=== PATIENT | male | born 1970 | race African-American/Black ===

== ENCOUNTER 2017-08-20 23:51 | Emergency (ER) | payer MEDICAID, OTHER ==
[~2017-08-20] VITALS: Ht 185.4 cm; Wt 81.6 kg
[2017-08-21 00:35] LABS: BASOPHILS % (AUTO) 0.5 % (0.0-2.0); EOSINOPHILS % (AUTO) 0.3 % (0.0-6.0); HEMATOCRIT 40 % (39-51); HEMOGLOBIN 13.8 g/dL (13.5-17.5); LYMPHOCYTES # (AUTO) 2.1 /CMM (0.8-4.8); LYMPHOCYTES % (AUTO) 33.7 % (20.0-44.0); MEAN CORPUSCULAR HGB CONC 35 g/dl (31.0-36.0); MEAN CORPUSCULAR VOLUME 90 fL (80-96); MONOCYTES # (AUTO) 0.4 /CMM (0.1-1.30); MONOCYTES % (AUTO) 6.8 % (2.0-12.0); NEUTROPHILS # (AUTO) 3.6 /CMM (1.8-8.9); NEUTROPHILS % (AUTO) 58.7 % (43.0-81.0); PLATELET COUNT (AUTO) 218 /CMM (150-450); RDW COEFFICIENT OF VARIATION 12.4 (11.5-15.0); RED BLOOD CELL COUNT(AUTO) 4.41 MIL/uL (4.5-6.0); WHITE BLOOD COUNT (AUTO) 6.1 K/uL (4.3-11.0)
[2017-08-21 00:47] LABS: CALCIUM, SERUM 8.5 mg/dL (8.5-10.1); CARBON DIOXIDE 21 mmol/L (21-32); CHLORIDE 104 mmol/L (98-107); CREATININE 0.9 mg/dL (0.6-1.3); GLUCOSE 125 mg/dL (74-106); POTASSIUM 3.1 mmol/L (3.5-5.1); SODIUM SERUM 141 mmol/L (136-145); UREA NITROGEN, BLOOD 11 mg/dL (7-18)
[2017-08-21 00:53] LABS: ALANINE AMINOTRANSFERASE 38 U/L (12-78); ALBUMIN 3.9 g/dL (3.4-5.0); ALCOHOL, BLOOD 237 mg/dL (0-0); ALKALINE PHOSPHATASE 87 U/L (46-116); ASPARTATE AMINOTRANSFERASE 22 U/L (15-37); BILIRUBIN,DIRECT 0.2 mg/dL (0.0-0.2); BILIRUBIN,TOTAL 1.5 mg/dL (0.2-1.0); TOTAL PROTEIN, SERUM 7.3 g/dL (6.4-8.2)
[2017-08-21 00:55] LABS: ACETAMINOPHEN 0 ug/ml (10-30); SALICYLATE < 0.2 mg/dL (2.8-20.0)
[2017-08-21] MEDS ORDERED: POTASSIUM CHLORIDE 20 MEQ TAB.PRT.SR PO ONE ×2 (01:30→04:17)
[2017-08-21 05:16] VITALS: BP 135/84
== END 2017-08-21 05:16 | disposition home or self-care (01) ==
LOC: ER 23:54
DX: F10.129 Alcohol abuse with intoxication, unspecified (principal); E87.6 Hypokalemia; F17.200 Nicotine dependence, unspecified, uncomplicated
CPT/HCPCS: 36415; 80048; 80076; 80329; 85025; 99284; 99406; A4606; G0480 ×2; Z7610

== ENCOUNTER 2017-12-22 06:40 | Emergency (ER) | payer MEDICAID, OTHER ==
[~2017-12-22] VITALS: Ht 180.3 cm; Wt 86.2 kg
--- NOTE | 2017-12-22 07:28 | NUR ---
BIB [facility] C/C EPIGASTRIC PAIN SINCE 0500 THIS MORNING. PT AA/OX4. NO S/S SOB. POSITIVE GAURDING TO STOMACH. SKIN PINK, WARM, DRY. NO N/V. NAD. STABLE CONDITION. AWAITING MD ORDERS.
[2017-12-22] MEDS: MORPHINE SULFATE INJ 2 MG/ML DISP.SYRIN IV ONE ×2 (07:30→07:53)
[2017-12-22] MEDS: ONDANSETRON HCL/PF 4 MG/2 ML VIAL IVP ONE ×2 (07:30→07:53)
[2017-12-22] MEDS ORDERED: IV NS 0.9% 1,000 ML BAG IV ONE (07:30)
--- NOTE | 2017-12-22 07:33 | NUR ---
ENDORSED TO ONCOMING SHIFT TANMAY HARRIS
[2017-12-22] MEDS ORDERED: ONDANSETRON HCL/PF 4 MG/2 ML VIAL ONE (07:35)
[2017-12-22] MEDS ORDERED: MORPHINE SULFATE INJ 4 MG/ML DISP.SYRIN ONE (07:35)
--- NOTE | 2017-12-22 07:35 | NUR ---
PT TAKEN TO CT.
[2017-12-22 07:44] LABS: BASOPHILS % (AUTO) 0.3 % (0.0-2.0); EOSINOPHILS % (AUTO) 0.8 % (0.0-6.0); HEMATOCRIT 44 % (39-51); HEMOGLOBIN 14.3 g/dL (13.5-17.5); LYMPHOCYTES # (AUTO) 1.2 /CMM (0.8-4.8); LYMPHOCYTES % (AUTO) 18.9 % (20.0-44.0); MEAN CORPUSCULAR HEMOGLOBIN 31 PG (26.0-33.0); MEAN CORPUSCULAR HGB CONC 33 g/dl (31.0-36.0); MEAN CORPUSCULAR VOLUME 95 fL (80-96); MONOCYTES # (AUTO) 0.4 /CMM (0.1-1.30); MONOCYTES % (AUTO) 6.6 % (2.0-12.0); NEUTROPHILS # (AUTO) 4.8 /CMM (1.8-8.9); NEUTROPHILS % (AUTO) 73.4 % (43.0-81.0); PLATELET COUNT (AUTO) 219 /CMM (150-450); RDW COEFFICIENT OF VARIATION 12.4 (11.5-15.0); RED BLOOD CELL COUNT(AUTO) 4.61 MIL/uL (4.5-6.0); WHITE BLOOD COUNT (AUTO) 6.6 K/uL (4.3-11.0)
--- NOTE | 2017-12-22 07:50 | NUR ---
PT BACK FROM CT AND REFUSES MEDS AT THIS TIME UNTIL TEST RESULTS ARE BACK.
[2017-12-22 07:53] LABS: CALCIUM, SERUM 8.6 mg/dL (8.5-10.1); CREATININE 1.3 mg/dL (0.6-1.3); POTASSIUM 3.4 mmol/L (3.5-5.1)
[2017-12-22 08:00] LABS: ALBUMIN 3.7 g/dL (3.4-5.0); BILIRUBIN,DIRECT 0.2 mg/dL (0.0-0.2); BILIRUBIN,TOTAL 1.1 mg/dL (0.2-1.0); TOTAL PROTEIN, SERUM 7.4 g/dL (6.4-8.2)
[2017-12-22 08:58] LABS: APPEARANCE,URINE SL CLOUDY (CLEAR); BILIRUBIN,URINE NEGATIVE (NEGATIVE); BLOOD, URINE NEGATIVE Ery/uL (NEGATIVE); COLOR,URINE YELLOW (YELLOW); KETONES,URINE TRACE (NEGATIVE); LEUKOCYTE ESTERASE ,URINE NEGATIVE (NEGATIVE); NITRITE, URINE NEGATIVE (NEGATIVE); PROTEIN,URINE 1+ mg/dl (NEGATIVE); UGLUCOSE NEGATIVE (NEGATIVE)
--- NOTE | 2017-12-22 09:00 | NUR ---
IV removed. Catheter intact and site benign. Pressure and 4x4 applied to site. No bleeding noted.
[2017-12-22 09:09] LABS: BACTERIA,URINE Moderate /HPF (None Seen); RBC,URINE 0-2 /HPF (0-2); SQUAMOUS EPITHELIAL CELL,UR Rare /HPF (None Seen); WBC,URINE 0-2 /HPF (0-3)
--- NOTE | 2017-12-22 09:21 | NUR ---
Patient discharged to home in stable condition. Written and verbal after care instructions given. Patient verbalizes understanding of instruction.
[2017-12-22 09:25] VITALS: BP 131/79
== END 2017-12-22 09:26 | disposition home or self-care (01) ==
LOC: ER 06:44
DX: K29.70 Gastritis, unspecified, without bleeding (principal); F10.129 Alcohol abuse with intoxication, unspecified; F17.200 Nicotine dependence, unspecified, uncomplicated; Y90.9 Presence of alcohol in blood, level not specified
CPT/HCPCS: 36415; 74176; 80048; 80076; 81001; 83690; 85025; 87086; 96360; 99285; 99406; A4606; J2405; J7030; Z7610; 81000-TC; J2270

== ENCOUNTER 2018-01-29 08:59 | Emergency (ER) | payer MEDICAID ==
[~2018-01-29] VITALS: Ht 185.4 cm; Wt 91.6 kg
--- NOTE | 2018-01-29 09:00 | NUR ---
PRESENTS TO ER C/O DIFFUSE ABDOMINAL X "COUPLE OF HOURS." NAUSEA, VOMITTED X 1. PT STATES 4 EPISODES THIS MONTH. AOX 4, BREATHING EVEN AND UNLABORED. NO SOB, NAD, VITALS STABLE. SAFETY AND COMFORT MEASURES IN PLACE. AWAITING MD ORDERS.
[2018-01-29] MEDS ORDERED: HYDROMORPHONE 1 MG/1 ML DISP.SYRIN ONE (09:20)
[2018-01-29] MEDS ORDERED: ONDANSETRON HCL/PF 4 MG/2 ML VIAL ONE (09:20)
[2018-01-29] MEDS ORDERED: HYDROMORPHONE INJ 2 MG/ML DISP.SYRIN IV ONE (09:30)
[2018-01-29] MEDS ORDERED: ONDANSETRON HCL/PF 4 MG/2 ML VIAL IVP ONE (09:30)
[2018-01-29] MEDS ORDERED: PANTOPRAZOLE 80 MG in IV NS 0.9% 500 ML IV ONE (09:30)
[2018-01-29] MEDS ORDERED: IV NS 0.9% 500 ML BAG IV ONE (09:30)
--- NOTE | 2018-01-29 09:30 | NUR ---
NEW IV STARTED ON LAC, 20G. BLOOD DRAWN AND SENT TO LAB.
[2018-01-29] MEDS ORDERED: PANTOPRAZOLE 40 MG VIAL ONE (09:35)
[2018-01-29 09:40] LABS: BASOPHILS # (AUTO) 0.1 /CMM (0.0-0.2); BASOPHILS % (AUTO) 0.7 % (0.0-2.0); EOSINOPHILS % (AUTO) 0.3 % (0.0-6.0); HEMATOCRIT 43 % (39-51); HEMOGLOBIN 14.4 g/dL (13.5-17.5); LYMPHOCYTES # (AUTO) 1.3 /CMM (0.8-4.8); LYMPHOCYTES % (AUTO) 17.5 % (20.0-44.0); MEAN CORPUSCULAR HEMOGLOBIN 30 PG (26.0-33.0); MEAN CORPUSCULAR HGB CONC 33 g/dl (31.0-36.0); MEAN CORPUSCULAR VOLUME 91 fL (80-96); MONOCYTES # (AUTO) 0.4 /CMM (0.1-1.30); MONOCYTES % (AUTO) 5.1 % (2.0-12.0); NEUTROPHILS # (AUTO) 5.7 /CMM (1.8-8.9); NEUTROPHILS % (AUTO) 76.4 % (43.0-81.0); PLATELET COUNT (AUTO) 241 /CMM (150-450); RDW COEFFICIENT OF VARIATION 12.3 (11.5-15.0); RED BLOOD CELL COUNT(AUTO) 4.76 MIL/uL (4.5-6.0); WHITE BLOOD COUNT (AUTO) 7.5 K/uL (4.3-11.0)
[2018-01-29 09:43] LABS: CALCIUM, SERUM 9.1 mg/dL (8.5-10.1); CARBON DIOXIDE 31 mmol/L (21-32); CHLORIDE 101 mmol/L (98-107); CREATININE 1.2 mg/dL (0.6-1.3); GLUCOSE 150 mg/dL (74-106); POTASSIUM 3.5 mmol/L (3.5-5.1); SODIUM SERUM 140 mmol/L (136-145); UREA NITROGEN, BLOOD 15 mg/dL (7-18)
[2018-01-29 09:48] LABS: ALANINE AMINOTRANSFERASE 29 U/L (12-78); ALKALINE PHOSPHATASE 86 U/L (46-116); ASPARTATE AMINOTRANSFERASE 21 U/L (15-37); BILIRUBIN,DIRECT 0.2 mg/dL (0.0-0.2); BILIRUBIN,TOTAL 1.3 mg/dL (0.2-1.0); LIPASE 175 U/L (73-393); TOTAL PROTEIN, SERUM 7.5 g/dL (6.4-8.2)
[2018-01-29 09:50] LABS: TROPONIN I < 0.017 ng/mL (0.00-0.056)
--- NOTE | 2018-01-29 10:28 | NUR ---
sw at bedside.
--- NOTE | 2018-01-29 10:33 | NUR ---
RICHARD received a call from ED stating pt. would like to speak with SW. RICHARD met with pt. bedside. Pt. is alert and oriented x 4. Pt. is pleasant and cooperative with SW. Pt. states he wants to apply for [employer] insurance. RICHARD gave pt. address to [employer] located at [address] [place] [address] and informed him that they would be able to assist him. RICHARD also gave pt. list of [facility] clinics, hospitals and urgent care centers. No other social service needs are required at this time. SW is available, if needed.
[2018-01-29 10:55] VITALS: BP 126/69
--- NOTE | 2018-01-29 10:56 | NUR ---
IV removed. Catheter intact and site benign. Pressure and 4x4 applied to site. No bleeding noted. Patient discharged to home in stable condition. Written and verbal after care instructions given. Patient verbalizes understanding of instruction.
== END 2018-01-29 10:55 | disposition home or self-care (01) ==
LOC: ER 08:59
DX: R10.84 Generalized abdominal pain (principal); F10.10 Alcohol abuse, uncomplicated; F17.200 Nicotine dependence, unspecified, uncomplicated; Y90.9 Presence of alcohol in blood, level not specified
CPT/HCPCS: 36415; 74176; 80048; 80076; 83690; 84484; 85025; 93005; 96365; 96375; 99285; A4606; C9113; J1170; J2405; J7040; Z7610